=== PATIENT | female | born 1955 | race Caucasian/White ===

== ENCOUNTER → 2018-05-25 09:05 | Outpatient (CLI) | payer MEDICAID, SELFPAY ==
[2018-05-25 10:52] LABS: Hemoglobin A1c 11.3 % (4.2-6.3)
[2018-05-25 11:02] LABS: ALB/GLOB Ratio 0.8 RATIO (0.9-2.4); AST(SGOT) 33 U/L (15-37); Alanine Aminotransfer ALT/SGPT 33 U/L (13-56); Alkaline Phosphatase 120 U/L (45-117); Anion Gap 4 (5-15); BUN 21 mg/dL (7-18); BUN/Creat Ratio 23.2 RATIO (10-20); Calcium,Total 8.8 mg/dL (8.5-10.1); Chloride 104 mmol/L (98-107); Cholesterol 146 mg/dL (200); Creatinine, Serum 0.91 mg/dL (0.55-1.02); EST Glomerular Filtration Rate 67 mL/min (>60); Est Glom Filt Rate - Afr Amer 81 mL/min (>60); Globulin 3.9 g/dL (2.2-4.2); Glucose 119 mg/dL (74-106); High Density Lipoprotein 53 mg/dL; Potassium 4.3 mmol/L (3.5-5.1); Protein, Total 6.9 g/dL (6.4-8.2); Sodium Level 138 mmol/L (136-145); Triglycerides 78 mg/dL; Very Low Density Lipoprotein 16 mg/dL (5-40)
[2018-05-25 11:09] LABS: Vitamin D,25 Hydroxy 10.2 ng/mL (29.95-100.01)
== END ==
PROVIDERS: Family Provider Family Medicine; PCP Family Medicine; Referring Provider Nurse Practitioner; Visit Provider Nurse Practitioner
DX: E10.9 Type 1 diabetes mellitus without complications (principal)
CPT/HCPCS: 36415; 80053; 80061; 82043; 82306; 82570; 83036

== ENCOUNTER 2019-08-11 16:44 | Emergency (ER) | payer MEDICAID, SELFPAY ==
[2018-09-01 12:40] VITALS: BMI 29.9
[2019-08-11 16:45] VITALS: BP 204/95; PULSE 81; RESP 16; TEMP 36.8; O2SAT 99; BMI 30.3
--- NOTE | 2019-08-11 16:47 | ED.DCSUM_ITS ---
- ER Visit Summary Date of Service: 08/11/19 Chief Complaint: Elevated blood pressure History of Present Illness: The patient is a 63 F presenting per EMS for elevated blood pressure. Patient was having a routine insurance screening today. It was noted that her blood pressure was over 200 systolic. Her blood sugar was over 400. She did not take her medications today. She states she has been under stress and is taking care of her mother and her brother. This caused her to forget her medications today. She states that she did take her medications yesterday. She denies recent fever or chills. Denies chest pain or shortness of breath. Denies abdominal pain, nausea, vomiting. She complains of mild headache which is typical for her and no worse than usual. Denies other complaints. Physical Examination: Vitals are stable. Blood pressure 204/95. Patient is afebrile. Alert no acute distress. HEENT exam is unremarkable. Neck is supple. Lungs are clear and equal bilaterally. Heart is regular rate and rhythm. Abdomen is soft nontender nondistended. Extremities are unremarkable. Skin is warm and dry. No focal neurologic deficit. Remainder of exam is unremarkable. Emergency Department Course and Treatment: Patient given IV fluids. She was given her home dose of lisinopril. Chemistries show sodium 135, BUN 23, creatinine 1.19. Repeat blood pressure 159/80. She was given insulin subcutaneously. Repeat blood sugar 222. Patient is resting comfortably in the ED. She is advised to follow-up with her primary care physician. Advised to take her medication as directed. Advised return to ED if worsening complaints. Disposition: Discharge home Impression: Hypertension, hyperglycemia This note was generated with [employer]ister dictation software. It may contain incorrect words, spelling, and punctuation that were not noted in review of the chart prior to signing ED Disposition - Plan for ED Patient: Instructions: HYPERTENSION, Established Referrals: Melida Shaw MD [Primary Care Provider] - Sommer Wells DIRECTOR UTILIZATION MANAGEMENT-C [NON-STAFF] -
[2019-08-11] MEDS: 0.9% Normal Saline 1,000 ML 999 ML IV ×2 (16:57→18:38)
[2019-08-11] MEDS: Lisinopril 5 MG Tablet PO (17:00)
[2019-08-11 17:05] VITALS: BP 159/80; PULSE 78; RESP 21; O2SAT 99
[2019-08-11 17:06] LABS: Bedside Glucose 398 mg/dL (70-110)
[2019-08-11 17:37] LABS: Anion Gap 4 (5-15); BUN 23 mg/dL (7-18); BUN/Creat Ratio 19.3 RATIO (10-20); Calcium,Total 8.5 mg/dL (8.5-10.1); Chloride 102 mmol/L (98-107); Creatinine, Serum 1.19 mg/dL (0.55-1.02); EST Glomerular Filtration Rate 49 mL/min (>60); Est Glom Filt Rate - Afr Amer 59 mL/min (>60); Estimated Creatinine Clearance 46.48 ml/min; Glucose 426 mg/dL (74-106); Potassium 4.1 mmol/L (3.5-5.1); Sodium Level 135 mmol/L (136-145)
[2019-08-11] MEDS: Insulin Lispro 100 UNIT/ML INSULN.PEN 10 UNIT SC ×2 (17:52→18:38)
[2019-08-11 18:01] VITALS: BP 205/87; PULSE 76; RESP 13; O2SAT 99
[2019-08-11 18:35] LABS: Bedside Glucose 322 mg/dL (70-110)
[2019-08-11 19:31] LABS: Bedside Glucose 222 mg/dL (70-110)
--- NOTE | 2019-08-11 19:32 | DCINST.ED_ITS ---
ED Disposition - Plan for ED Patient: Instructions: HYPERTENSION, Established Referrals: Melida Shaw MD [Primary Care Provider] - Sommer Wells WIRELESS OPERATOR-C [NON-STAFF] -
[2019-08-11 20:07] VITALS: BP 167/79; PULSE 85; RESP 18; O2SAT 96
== END 2019-08-11 20:10 | disposition home or self-care (01) ==
LOC: ED 17:06
PROVIDERS: Emergency Provider Emergency Medicine; Family Provider Family Medicine; PCP Family Medicine
DX: E11.65 Type 2 diabetes mellitus with hyperglycemia (principal); I10 Essential (primary) hypertension; Z79.4 Long term (current) use of insulin; Z79.899 Other long term (current) drug therapy
CPT/HCPCS: 80048; 82962; 96360; 96361; 99285; J7030; A4216

== ENCOUNTER 2019-12-20 15:11 | Observation (INO) | payer MEDICAID, SELFPAY ==
[2019-12-20] VITALS (11 sets, daily range): BP systolic 125–196; BP diastolic 62–87; PULSE 73–79; RESP 14–17; TEMP 36.1–37.1; O2SAT 99–100; BMI 30.3; BMI 30.2; BMI 29.5
--- NOTE | 2019-12-20 15:55 | CT_ITS ---
STUDY: CT BRAIN WITHOUT CONTRAST REASON FOR EXAM: Female, 64 years old. Dizziness, mental status change RADIATION DOSAGE (If Supplied By Facility): CTDIvol = ( 44.99 ) mGy, DLP = ( 796.11 ) mGycm TECHNIQUE: Transaxial CT imaging of the brain was performed without administration of intravenous contrast material. Individualized dose optimization techniques were used for this CT. COMPARISON: 05/20/2016 FINDINGS: Normal soft tissue structures. Normal calvarium. Normal size ventricles and extra-axial spaces for the patient''s age. Normal white matter tracts of the cerebral hemispheres. Normal basal ganglia and thalami. Normal brainstem. Normal cerebellum. There is no intracranial hemorrhage. There are no findings of an acute ischemic infarction. Normal visualized paranasal sinuses. CT/Brain/Head without Contrast IMPRESSION: Chronic involutional changes of the brain. No acute hemorrhage or significant interval change Electronically Signed: Javid Hill MD at 17:02 EDT , Service support ,
--- NOTE | 2019-12-20 15:55 | EKG12_ITS ---
Test Reason : Blood Pressure : / mmHG Vent. Rate : 075 BPM Atrial Rate : 075 BPM P-R Int : 162 ms QRS Dur : 110 ms QT Int : 412 ms P-R-T Axes : 034 -32 059 degrees QTc Int : 460 ms Normal sinus rhythm Left axis deviation Incomplete right bundle branch block Abnormal ECG Confirmed by JUAREZ CROW ([id number]), editorial cartoonist BETH LIMA ([id number]) on 12/27/2019 2:52:49 PM Referred By: HOLLEY/ANGELA Confirmed By:JUAREZ CROW
--- NOTE | 2019-12-20 16:00 | ED.VIS.GEN ---
History of Present Illness Chief Complaint: Dizziness Informant: Patient Onset: Today Context: Sudden Onset Timing: Continuous Current Severity: Mild Maximum Severity: Moderate Narrative: The patient is a 64-year-old female with medical history significant for hypertension, hyperlipidemia, and diabetes that presents to the emergency department with TIA type symptoms. Patient states she was in her normal state of health. States she was driving. She had sudden onset lightheadedness. She states that she noticed she could not focus. She had a difficult time getting her words out. She states that she had her cell phone, but cannot figure out how to work it. Her symptoms lasted about half an hour and totally resolved. She states that she did have a mild headache at the time. She is been working with her physician to get her blood pressure under better control. She states normally, it runs in the 170s. She denies any chest pain or dyspnea. She denies any falls or trauma. She states that she does have blurry vision intermittently, but attributes this to her diabetic retinopathy. Prior similar symptoms: No Recent Illness/Hospitalization: No Past Medical History - Allergies and Home Meds Allergies/Adverse Reactions: Allergies Penicillins Allergy (Verified 12/20/19 15:23) Hives hydromorphone [From Dilaudid] Adverse Reaction (Verified 12/20/19 15:23) Vomiting Primary Care Physician: Melida Shaw MD [Primary Care Provider] - Prior records reviewed: Yes Past Medical History: - - Hypertension, hyperlipidemia, diabetes Surgical History: noncontributory, ACL repair Smoking Status: Former smoker - Family History Maternal Family History: Family History (Last Reviewed 09/01/18 @ 12:37 by Catherine Centeno) Mother Diabetes Father Heart disease Hypertension Family History: Reports: No pertinent history Review of Systems General: Denies: Chills, Fever, Sweats Eyes: Denies: Visual changes - bilaterally, Diplopia ENT: Denies: Rhinorrhea, Sore throat Cardiovascular: Denies: Chest pain, Palpitations Respiratory: Denies: Dyspnea, Cough, Dyspnea on exertion Gastrointestinal: Denies: Abdominal pain, Nausea, Vomiting, Diarrhea, Melena, Hematochezia Genitourinary: Denies: Dysuria, Hematuria, Frequency Musculoskeletal: Denies: Back pain, Extremity Pain Skin: Denies: Rash, Wounds Neurological: Denies: Headache, Weakness, Numbness Physical Exam Vital Signs/Narrative: Vital Signs Temp Pulse Resp BP Pulse Ox 12/20/19 15:12 98.7 F 76 17 189/81 H 100 Inital Vital Signs reviewed: Yes General: Well nourished, Well developed, No Acute Distress Head: Normocephalic, Atraumatic Eyes: Perrl, EOMI ENT: Moist mucous membranes, No rhinorrhea Neck: Supple, Nontender Cardiovascular: Regular rate, Regular rhythm, No murmurs Respiratory: No distress, CTA bilaterally, Chest nontender Abdomen: Soft, Nontender, Nondistended, Normal bowel sounds Back: Nontender, Normal Inspection Extremities: Nontender, No edema Skin: Normal color, No rash Neurological: Alert, Oriented x3, Cranial nerves II-XII grossly intact, Normal Strength, Normal Sensation Psychological: Normal affect, Normal Mood Diagnostic/Tx/Re-eval Abnormal Lab Results 12/20/19 12/20/19 12/20/19 16:26 16:26 16:26 WBC 9.8 RBC 4.00 L Hgb 11.0 L Hct 33.6 L MCV 84.0 MCH 27.5 MCHC 32.7 RDW Std Deviation 39.5 RDW Coeff of Nevin 12.9 Plt Count 254 MPV 9.7 Immature Gran % (Auto) 0.100 Neut % (Auto) 49.1 Lymph % (Auto) 36.2 [place] % (Auto) 7.1 Eos % (Auto) 6.9 H Baso % (Auto) 0.6 Absolute Neuts (auto) 4.8 Absolute Lymphs (auto) 3.53 Nucleated RBC % 0 PT 13.0 INR 1.0 APTT 28.2 Sodium 138 Potassium 4.4 Chloride 105 Carbon Dioxide 28.0 Anion Gap 5 BUN 36 H Creatinine 1.39 H Estim Creat Clear Calc 39.28 Est GFR (MDRD) Af Amer 49 L Est GFR (MDRD) Non-Af 41 L BUN/Creatinine Ratio 25.9 H Glucose 164 H Calcium 9.2 Troponin I < 0.015 Clinical Impression(s) from Imaging Studies Brain CT 12/20/19 15:55 IMPRESSION: Chronic involutional changes of the brain. No acute hemorrhage or significant interval change Electronically Signed: Javid Hill MD at 17:02 EDT , Service support , Chest X-Ray 12/20/19 16:47 IMPRESSION: Normal x-ray examination of the chest. Electronically Signed: Javid Hill MD at 16:57 EDT , Service support , - Medical Decision Making The patient presents with lightheadedness, difficulty with speech, and difficulty controlling her phone. It lasted about 30 minutes and then resolved. She has an NIH of 0 on arrival. Stroke team was not activated as the patient symptoms have totally resolved. Noncontrast head CT was obtained and shows chronic change without acute abnormality. Screening labs are unremarkable. With the patient's age, significant history of poorly controlled diabetes and accelerated hypertension, I do feel the safest plan would be the observation for TIA work-up. The patient was discussed with the hospitalist. Impression 1. TIA 2. History of insulin-dependent diabetes 3. History of hypertension ED Disposition - Plan for ED Patient: Referrals: Melida Shaw MD [Primary Care Provider] -
[2019-12-20 16:40] LABS: Absolute Lymphocyte Count 3.53 X10^3/uL (0.83-4.51); Absolute Neutrophil Count 4.8 X10^3/uL (2.0-7.7); Basophil# 0.06 X10^3/uL; Basophil% 0.6 % (0-1); Eosinophil# 0.67 X10^3/uL; Eosinophils% 6.9 % (0-5); Hematocrit 33.6 % (37-47); Lymphocyte # 3.53 X10^3/ul (4.0); Lymphocyte % 36.2 % (19-41); Mean Corp Hgb Conc 32.7 g/dL (32-36); Mean Corpuscular Hgb 27.5 pg (27.0-32.0); Mean Platelet Vol. 9.7 fl (6.2-12.0); Monocyte# 0.69 X10^3/uL; Monocyte% 7.1 % (0-10); NRBC Flagged by Analyzer 0 % (0-5); Neutrophil % 49.1 % (47-70); Platelet Count 254 K/mm3 (150-450); RBC Distribution Width CV 12.9 % (11.6-14.6); RBC Distribution Width SD 39.5 fl (35.1-43.9); White Blood Count 9.8 K/mm3 (4.4-11.0)
--- NOTE | 2019-12-20 16:47 | RAD_ITS ---
STUDY: X-RAY CHEST REASON FOR EXAM: Female, 64 years old. Dizziness and headache, hypertension TECHNIQUE: Single AP portable view of the chest. COMPARISON: 09/04/2016 FINDINGS: EKG leads overlie the chest The lungs are clear and expanded. There is no demonstrated pleural abnormality. Normal size heart. Normal mediastinum and cecilio. Normal visualized pulmonary arteries. Normal visualized aortic arch and descending thoracic aorta. Normal visualized thoracic spine. Normal visualized ribs, clavicles, and shoulders. There is no demonstrated abnormality of the visualized soft tissue structures of the upper abdomen. RAD/Chest 1 View IMPRESSION: Normal x-ray examination of the chest. Electronically Signed: Javid Hill MD at 16:57 EDT , Service support ,
[2019-12-20 16:57] LABS: Anion Gap 5 (5-15); BUN 36 mg/dL (7-18); BUN/Creat Ratio 25.9 RATIO (10-20); Calcium,Total 9.2 mg/dL (8.5-10.1); Chloride 105 mmol/L (98-107); Creatinine, Serum 1.39 mg/dL (0.55-1.02); EST Glomerular Filtration Rate 41 mL/min (>60); Est Glom Filt Rate - Afr Amer 49 mL/min (>60); Estimated Creatinine Clearance 39.28 ml/min; Glucose 164 mg/dL (74-106); Potassium 4.4 mmol/L (3.5-5.1); Sodium Level 138 mmol/L (136-145)
[2019-12-20 17:07] LABS: Partial Thromboplast Time 28.2 Seconds (24.1-36.2)
[2019-12-20] MEDS: amLODIPine 10 MG Tablet PO (17:54)
--- NOTE | 2019-12-20 17:56 | ED.RN ---
PT'S SISTER UPDATED ON PT STATUS AND ADMISSION ROOM
--- NOTE | 2019-12-20 18:25 | MRI_ITS ---
STUDY: MRI BRAIN WITHOUT CONTRAST REASON FOR EXAM: Female, 64 years old. tia, dizzness, grant, htn TECHNIQUE: Standardized multiplanar fat and water weighted pulse sequences were obtained. Dizziness and headache COMPARISON: CT of the brain December 20, 2019 FINDINGS: Mild atrophy and periventricular white matter ischemic changes without mass effect or restricted diffusion.. Tiny old lacunar infarct in right basal ganglia. Normal thalami. There is no extra-axial fluid accumulation. Normal flow voids within the major intracranial circulation suggesting patency by spin echo criteria. Normal sella turcica, pituitary gland, infundibular stalk, optic chiasm and hypothalamus. Normal tectal plate and pineal gland. Normal midbrain, bhaskar and medulla. Normal cerebellum. Normal basal cisterns. Normal bilateral temporal bones. Normal bilateral internal auditory canals. Fluid signal noted within the left mastoid air cells consistent with inflammatory disease Postop changes involving the orbits.. Normal visualized paranasal sinuses. Normal calvarium and skull base. Normal visualized soft tissue structures. Normal visualized upper cervical spine. MRI/Brain without Contrast IMPRESSION: Mild atrophy and periventricular white matter ischemic change without evidence for acute infarct. Tiny old right lacunar infarct Electronically Signed: Lyndon Munguia MD at 20:04 EDT , Service support ,
--- NOTE | 2019-12-20 18:25 | ECHOD_ITS ---
Reason For Study: TIA/CVA Procedure This was a 2D Doppler, Color Flow transthoracic echocardiogram. The exam was of adequate technical quality. Exam performed portable in patient room. Left Ventricle Normal LV size. Left ventricular systolic function is normal. The estimated ejection fraction is 65 %. Diastolic function is indeterminate. No regional wall motion abnormalities noted. Right Ventricle Normal RV size. Normal systolic function. Atria Normal left atrium. Normal right atrium. No doppler evidence for ASD. Mitral Valve There is no mitral annular calcification. Normal mitral valve. Trivial mitral valve insufficiency. Tricuspid Valve Normal tricuspid valve. Trivial tricuspid valve insufficiency. Aortic Valve Trisinus/trileaflet aortic valve. Mild focal aortic valve calcification. Pulmonic Valve Normal pulmonic valve. Trivial pulmonic valve insufficiency. Great Vessels Normal sized aortic root. Pericardium/Pleural Trivial pericardial effusion. There are no echocardiographic indications of cardiac tamponade. Medication Negative bubble study on previous VINNIE 05/10. MMode/2D Measurements & Calculations LVIDd: 4.0 cm IVSd: 1.1 cm Ao root diam: 2.8 cm LVIDs: 2.5 cm LVPWd: 0.97 cm RVDd: 3.1 cm FS: 38.2 % LAV(MOD-bp): 52.1 ml LVAd ap4: 24.7 cm2 SV(MOD-sp4): 41.9 ml LAV(MOD-bp) Indexed: 26.8 ml/m2 EDV(MOD-sp4): 65.7 ml LAV(MOD-sp2): 60.3 ml EDV(sp4-el): 67.1 ml LAV(MOD-sp4): 44.2 ml LVAs ap4: 13.6 cm2 ESV(MOD-sp4): 23.8 ml ESV(sp4-el): 24.1 ml EF(MOD-sp4): 63.7 % EF(sp4-el): 64.1 % SV(sp4-el): 43.0 ml LA A4 area: 16.5 cm2 LA dimension(2D): 3.1 cm RA A4 area: 13.8 cm2 Doppler Measurements & Calculations MV E max sawyer: 84.2 cm/sec Lat Peak E' Sawyer: 7.1 cm/sec Med Peak E' Sawyer: 4.5 cm/sec MV A max sawyer: 122.0 cm/sec E/E' lat: 11.8 E/E' med: 18.6 MV E/A: 0.69 Ao V2 max: 144.4 cm/sec LV V1 max: 105.2 cm/sec PA V2 max: 87.6 cm/sec Ao max P.3 mmHg LV V1 max P.4 mmHg Interpretation Summary Left ventricular systolic function is normal. The estimated ejection fraction is 65 %. Trivial mitral valve insufficiency. Trivial tricuspid valve insufficiency. Mild focal aortic valve calcification. Trivial pulmonic valve insufficiency. Trivial pericardial effusion. There are no echocardiographic indications of cardiac tamponade. Diastolic function is indeterminate. Ordering Physician: Adelso Perry Referring Physician: Melida Shaw Performed By: Clara Spicer RDCS
--- NOTE | 2019-12-20 19:00 | HP.PCM_ITS ---
History of Present Illness Date of Admission: 12/20/19 Chief Complaint: TIA The patient is a 64 year old F with a PMH as below who presents with numbness concerning for a TIA that started around noon today. She states that she was driving and called her brother and was not making any sense he said that he cou ld not understand her and to call back when he she gets home. She says that she started having headaches as well as blurry vision and could not figure out how to you operate her phone. She called back when she was able to make it home and at that point the decision was made to come to the ER. In the ER her symptoms were basically resolved, she states that she has some residual blurry vision but that is much improved than what it had been. She says that she has been struggling with her blood pressure for about 6 months now. She she was on lisinopril that was started at 5 mg and was slowly increased to 40 mg daily and she had chlorthalidone added on . Her blood pressure is anywhere between 180 and 200 systolic while here. In the ER she was given a dose of labetalol and a dose of Norvasc p.o. She says that she was supposed to have a renal ultrasound done as an outpatient as well as a 24-hour urine collection. She states that she is normally blurry vision because of her diabetic retinopathy and per documentation from the ED physician her NIH is 0 at the time of admission. Her creatinine has increased to 1.39 from a baseline of around 1. A1c back in 2018 was 11.3, blood sugar today is 164. 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 dx as type 1 - 2 years ago Last exacerbation : DKA : 2016 Hypoglycemic episode : never ER visit : 2016 Vision problem H54.7 Allergies Penicillins Allergy (Verified 12/20/19 15:23) Hives hydromorphone [From Dilaudid] Adverse Reaction (Verified 12/20/19 15:23) Vomiting Home Medications: Ambulatory Orders Medication Instructions Recorded insulin aspart U-100 100 unit/mL See Rx Instructions SC TID ml 05/13/18 (3 mL) subcutaneous pen Insulin Glargine,Hum.rec.anlog 20 unit SUBCUT QHS 08/11/19 [Basaglar KwikPen U-100 Insulin] Atorvastatin Calcium 20 mg PO DAILY 12/20/19 Chlorthalidone 25 mg PO DAILY 12/20/19 Lisinopril 40 mg PO DAILY 12/20/19 Loratadine 10 mg PO DAILY 12/20/19 Surgical History: Surgical History (Last Updated 09/01/18 @ 12:57 by Catherine Centeno) Heel spur M77.30 History of cataract extraction with lens replacement Hx of eye surgery Z98.890 Hx of knee surgery Z98.890 Hx of tonsillectomy Z90.89 S/P carpal tunnel release Z98.890 S/P cholecystectomy Z90.49 S/p bilateral myringotomy with tube placement Z96.22 Smoking Status: Former smoker Tobacco Use: Cigarettes Alcohol: None Drugs: None - *Family History Maternal Family History: Family History (Last Reviewed 09/01/18 @ 12:37 by Catherine Centeno) Mother Diabetes Father Heart disease Hypertension History Items: No pertinent history Review of Systems Constitutional: Denies: Chills, Fever, Weight Change Eyes: Reports: Blurred vision HEENT: Reports: Head Aches. Denies: Sinus Congestion, Sinus Drainage Cardiovascular: Denies: Chest Pain, Palpitations Respiratory: Denies: Cough, Shortness of breath at rest, Sputum production Gastrointestinal: Denies: Abdominal Pain, Nausea, Vomiting Genitourinary: Denies: Dysuria Musculoskeletal: Denies: Joint Pain, Joint Tenderness Skin: Denies: Rash, Wounds Neurological: Reports: Blurred vision, Change in Speech, Slurred speech. Denies: Focal weakness, Numbness, Tingling Psychiatric: Denies: Anxiety, Depression, Homicidal Ideations, Suicidal Ideations Hematologic/ Lymphatic: Denies: Easy Bruising, Easy Bleeding VTE Information - Inpt Only VTE Present on Admission: No - Physical Exam Vitals/I&O's: Vital Signs Temp Pulse Resp BP Pulse Ox 98.1 F 77 16 159/86 H 100 12/20/19 18:30 12/20/19 18:30 12/20/19 18:30 12/20/19 18:30 12/20/19 18:30 Oxygen Delivery Method Room Air Weight: 182 lb 15.739 oz Body Mass Index (BMI) 29.5 Finger Stick Blood Glucose 226 General: Alert, Oriented x3, Cooperative, No apparent distress HEENT: Atraumatic, PERRLA, EOMI, Normocephalic Oral: Moist Mucosa Neck: Supple, No JVD Lungs: Clear to auscultation, Normal air movement, No rhonchi, No wheeze, No rales, Diminished Cardiovascular: Regular rate, Regular Rhythm, Normal S1, Normal S2, No murmurs Abdomen: Soft, Non Tender, Non-Distended, No Hepato-splenomegaly Extremities: No edema, Capillary Refill Less than 3 Seconds Skin: No rashes, No breakdown Neurological: Cranial nerves II-XII grossly intact, Neuro grossly intact, Motor Exam 5/5 strength throughout, Sensory exam intact to light touch and pain Psych/Mental Status: Normal Affect, Appropriate Laboratory Results 12/20/19 16:26: WBC 9.8, RBC 4.00 L, Hgb 11.0 L, Hct 33.6 L, MCV 84.0, MCH 27.5, MCHC 32.7, RDW Std Deviation 39.5, RDW Coeff of Nevin 12.9, Plt Count 254, MPV 9.7, Immature Gran % (Auto) 0.100, Neut % (Auto) 49.1, Lymph % (Auto) 36.2, [place] % (Auto) 7.1, Eos % (Auto) 6.9 H, Baso % (Auto) 0.6, Absolute Neuts (auto) 4.8, Absolute Lymphs (auto) 3.53, Nucleated RBC % 0 12/20/19 16:26: PT 13.0, INR 1.0, APTT 28.2 12/20/19 16:26: Sodium 138, Potassium 4.4, Chloride 105, Carbon Dioxide 28.0, Anion Gap 5, BUN 36 H, Creatinine 1.39 H, Estim Creat Clear Calc 39.28, Est GFR (MDRD) Af Amer 49 L, Est GFR (MDRD) Non-Af 41 L, BUN/Creatinine Ratio 25.9 H, Glucose 164 H, Calcium 9.2, Troponin I < 0.015 Current Medications Amlodipine Besylate (Norvasc) 10 mg PO DAILY MOHSEN Aspirin (Aspirin, Baby) 81 mg PO DAILY@0800 MOHSEN Dextrose (D50w Syringe) 0 gm IV X1 PRN; Protocol PRN Reason: Hypoglycemia Glucagon () 1 mg IM .X1 PRN PRN Reason: Hypoglycemia Heparin Sodium (Porcine) (Heparin Na) 5,000 unit SC Q8 MOHSEN Hydralazine HCl (Apresoline Iv) 5 mg IV Q30M PRN PRN Reason: to maintain BP goals Sodium Chloride () 250 mls @ 15 mls/hr IV .[id number] PRN PRN Reason: Saline Flush Sodium Chloride () 250 mls @ 15 mls/hr IV .[id number] PRN PRN Reason: Additional IVPB Infusion Labetalol HCl (Trandate) 10 - 20 mg IV Q10M PRN PRN PRN Reason: to maintain BP goals Melatonin (Melatonin) 3 mg PO QHS PRN PRN PRN Reason: INSOMNIA Ondansetron HCl (Zofran) 4 mg IV Q8H PRN PRN PRN Reason: NAUSEA/VOMITING Sodium Chloride () 10 - 40 ml IV UD PRN PRN Reason: SALINE FLUSH Assessment/Plan All Active Problems (Last Reviewed 09/01/18 @ 12:37 by Catherine Centeno) DKA (diabetic ketoacidosis) (Acute) Septic shock (Acute) Metabolic acidosis (Acute) Metabolic encephalopathy (Acute) 1. TIA/hypertensive urgency/hyperlipidemia -With the TIA-like symptoms and the headaches of the jaw revision and the elevated blood pressure there is a concern for hypertensive urgency -We will add Norvasc and monitor, will be slow with lowering her blood pressure -We will obtain an MRI in the morning and start her on aspirin -Continue with her Lipitor as well as her home chlorthalidone and lisinopril -We will obtain an echo, EKG was unremarkable -UA is pending, and will follow up with a renal ultrasound in the morning -NIH is per PCU protocol 2. IDDM 2 with peripheral neuropathy -He has stocking-glove numbness which is baseline as well as diabetic retinopathy -We will continue with her home insulin, and monitor we will check a [facility] Accu- Cheks and if necessary add further insulin -We will also order an A1c DVT: Heparin OBSV E&M: 73113 Initial observation care L3
--- NOTE | 2019-12-20 19:05 | US_ITS ---
STUDY: RENAL ULTRASOUND - COMPLETE REASON FOR EXAM: Female, 64 years old. HTN TECHNIQUE: Ultrasound evaluation of the kidneys was performed with real-time and static moya-scale imaging. COMPARISON: None. FINDINGS: RIGHT KIDNEY: Normal location of the right kidney, which is normal in size. The right kidney measures 10 x 5.3 x 4.9 cm. There is a normal cortex of the right kidney. The renal cortex measures 1.6 cm. There are 2 cysts measuring 1 x 1.3 x 2.5 cm and 1.2 x 0.9 x 0.7 cm There are no right renal calculi. There is no right hydronephrosis. DISTAL RIGHT URETER: There is non-visualization of the distal right ureter. There is no demonstrated right ureterovesical junction calculus. There is a visualized right ureteral jet. LEFT KIDNEY: Normal location of the left kidney, which is normal in size. The left kidney measures 11.3 x 5 x 4.9 cm. There is a normal cortex of the left kidney. The renal cortex measures 1.9 cm. There is a cyst measuring 1 x 0.9 x 0.9 cm There are no left renal calculi. There is no left hydronephrosis. DISTAL LEFT URETER: There is non-visualization of the distal left ureter. There is no demonstrated left ureterovesical junction calculus. There is a visualized left ureteral jet. Diffusely increased cortical echoes bilaterally consistent with nonspecific renal parenchymal disease BLADDER: The distended urinary bladder has a volume of 1.26 ml. 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 Small bilateral cysts. Electronically Signed: Lyndon Munguia MD at 20:44 EDT , Service support ,
[2019-12-20 19:37] LABS: Hemoglobin A1c 10.3 % (4.2-6.3)
[2019-12-20 20:45] LABS: Bedside Glucose 156 mg/dL (70-110)
[2019-12-20] MEDS: Heparin Injection (Vial) 5,000 UNIT/ML VIAL 5000 UNIT SC (21:54)
[2019-12-21] VITALS (8 sets, daily range): BP systolic 123–154; BP diastolic 58–70; PULSE 70–82; RESP 16–17; TEMP 36.6–36.7; O2SAT 95–98; BMI 29.5
[2019-12-21 04:19] LABS: Mucous, Urine 0 SEEN /hpf (<or=2+)
[2019-12-21 04:20] LABS: Color, Urine Yellow (Yellow); Glucose, Dipstick 50 mg/dl (Normal); Ketone-Dipstick Negative (Negative); Leukocyte Esterase-Dipstick 500 /ul (Negative); Nitrite-Dipstick Negative (Negative); Occult Blood-Urine 50 /ul (Negative); Protein-Dipstick 100 mg/dl (Negative); Specific Gravity, Urine 1.015 (1.002-1.030); Urine Bilirubin Dipstick Negative (Negative); Urine Clarity Cloudy (Clear); Urine Urobilinogen Normal (Normal)
[2019-12-21 04:26] LABS: Bacteria 3+ /hpf (None Seen); Red Blood Cells-Urine 5-10 SEEN /hpf (0-5); Squamous Epithelial Cells - UA 5-10 SEEN /hpf (5-10); White Blood Cells 10-25 SEEN /hpf (0-5)
[2019-12-21] MEDS: Heparin Injection (Vial) 5,000 UNIT/ML VIAL 5000 UNIT SC ×2 (05:50→13:42)
[2019-12-21 07:51] LABS: Absolute Lymphocyte Count 2.86 X10^3/uL (0.83-4.51); Absolute Neutrophil Count 3.3 X10^3/uL (2.0-7.7); Basophil# 0.06 X10^3/uL; Basophil% 0.8 % (0-1); Eosinophil# 0.56 X10^3/uL; Eosinophils% 7.6 % (0-5); Hematocrit 30.3 % (37-47); Lymphocyte # 2.86 X10^3/ul (4.0); Lymphocyte % 38.9 % (19-41); Mean Corpuscular Hgb 27.5 pg (27.0-32.0); Mean Corpuscular Volume 83.2 fL (81-99); Mean Platelet Vol. 10.1 fl (6.2-12.0); Monocyte# 0.58 X10^3/uL; Monocyte% 7.9 % (0-10); NRBC Flagged by Analyzer 0 % (0-5); Neutrophil # 3.28 X10^3/uL (2.7-7.7); Neutrophil % 44.7 % (47-70); Platelet Count 224 K/mm3 (150-450); RBC Distribution Width SD 39.4 fl (35.1-43.9); Red Blood Count 3.64 M/mm3 (4.2-5.4); White Blood Count 7.4 K/mm3 (4.4-11.0)
[2019-12-21] MEDS: Aspirin 81 MG TAB.CHEW PO (07:56)
[2019-12-21] MEDS: Insulin Lispro 100 UNIT/ML INSULN.PEN 10 UNIT SC ×2 (08:02→11:26)
[2019-12-21] MEDS: Insulin Lispro 100 UNIT/ML INSULN.PEN SC ×2 (08:03→11:26)
[2019-12-21 08:16] LABS: Anion Gap 7 (5-15); BUN 34 mg/dL (7-18); Calcium,Total 8.7 mg/dL (8.5-10.1); Chloride 105 mmol/L (98-107); Cholesterol 97 mg/dL (200); Creatinine, Serum 1.31 mg/dL (0.55-1.02); EST Glomerular Filtration Rate 44 mL/min (>60); Est Glom Filt Rate - Afr Amer 53 mL/min (>60); Estimated Creatinine Clearance 41.68 ml/min; Glucose 200 mg/dL (74-106); High Density Lipoprotein 36 mg/dL; Sodium Level 138 mmol/L (136-145); Triglycerides 106 mg/dL; Very Low Density Lipoprotein 21 mg/dL (5-40)
[2019-12-21] MEDS: Acetaminophen 325 MG Tablet 650 MG PO (09:02)
[2019-12-21] MEDS: Lisinopril 40 MG Tablet PO (09:04)
[2019-12-21] MEDS: Loratadine 10 MG Tablet PO (09:04)
[2019-12-21] MEDS: amLODIPine 10 MG Tablet PO (09:04)
[2019-12-21] MEDS: Chlorthalidone 50 MG Tablet 25 MG PO (09:10)
[2019-12-21 09:15] LABS: Bedside Glucose 196 mg/dL (70-110)
[2019-12-21] MEDS: Ciprofloxacin 500 MG Tablet PO (10:32)
[2019-12-21 10:35] LABS: Protein:Creat Ratio 1011 mg/g CRE (0-200)
[2019-12-21 11:36] LABS: Bedside Glucose 373 mg/dL (70-110)
--- NOTE | 2019-12-21 14:45 | DCINST_ITS ---
You will use the following diet at home:: Calorie/Carbohydrate Controlled (specify 1200, 1400, etc) Your food should be the consistency of: Regular Your liquids should be the consistency of: Regular/Thin Discharge Activity: Return to Normal Activity Call your doctor if you observe: Fever of 101 or Higher, Shortness of breath, Dizziness, Fainting spells, Swelling in the ankles, Chest pain, Increased palpitations (irregular heartbeat) Additional Instructions: Have a BMP as an outpatient by your PCP to evaluate your kidney function. Allergies/Adverse Reactions: Allergies Penicillins Allergy (Verified 12/20/19 15:23) Hives cephalexin [From Keflex] Adverse Reaction (Verified 12/21/19 09:06) Itching hydromorphone [From Dilaudid] Adverse Reaction (Verified 12/20/19 15:23) Vomiting Medications to take at Discharge insulin aspart U-100 100 unit/mL (3 mL) subcutaneous pen See Rx Instructions SC TID ml 05/13/18 Insulin Glargine,Hum.rec.anlog [Basaglar Kwikpen U-100] 20 unit SUBCUT QHS 08/11/19 Atorvastatin Calcium 20 mg PO DAILY 12/20/19 Chlorthalidone 25 mg PO DAILY 12/20/19 Lisinopril 40 mg PO DAILY 12/20/19 Loratadine 10 mg PO DAILY 12/20/19 Amlodipine [Norvasc] 10 mg PO DAILY #30 tab 12/21/19 Aspirin [Aspirin, Baby] 81 mg PO DAILY@0800 #30 tab.chew 12/21/19 Ciprofloxacin [Cipro] 500 mg PO BID #10 tab 12/21/19 The following prescriptions were given: Aspirin [Aspirin, Baby] 81 mg PO DAILY@0800 #30 tab.chew Transmission Status: Pending to [facility] Ciprofloxacin [Cipro] 500 mg PO BID #10 tab Transmission Status: Pending to [facility] Amlodipine [Norvasc] 10 mg PO DAILY #30 tab Transmission Status: Pending to [facility] Primary Care Physician: Melida Shaw MD [Primary Care Provider] - Please follow up with your Primary Care Physician in: 1-2 weeks Test Results: Test results from this visit will be discussed in further detail at your follow- up appointment, if applicable. Please Follow Up With: Susie Waddell DO When: 2-4 weeks
--- NOTE | 2019-12-21 14:47 | PCM.DC.SUM ---
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 No acute hemorrhage or significant interval change CXR: IMPRESSION: Normal x-ray examination of the chest. MRI Brain IMPRESSION: Mild atrophy and periventricular white matter ischemic change without evidence for acute infarct. Tiny old right lacunar infarct Echo: Interpretation Summary Left ventricular systolic function is normal. The estimated ejection fraction is 65 %. Trivial mitral valve insufficiency. Trivial tricuspid valve insufficiency. Mild focal aortic valve calcification. Trivial pulmonic valve insufficiency. Trivial pericardial effusion. There are no echocardiographic indications of cardiac tamponade. Diastolic function is indeterminate. Renal US: FINDINGS: RIGHT KIDNEY: Normal location of the right kidney, which is normal in size. The right kidney measures 10 x 5.3 x 4.9 cm. There is a normal cortex of the right kidney. The renal cortex measures 1.6 cm. There are 2 cysts measuring 1 x 1.3 x 2.5 cm and 1.2 x 0.9 x 0.7 cm There are no right renal calculi. There is no right hydronephrosis. DISTAL RIGHT URETER: There is non-visualization of the distal right ureter. There is no demonstrated right ureterovesical junction calculus. There is a visualized right ureteral jet. LEFT KIDNEY: Normal location of the left kidney, which is normal in size. The left kidney measures 11.3 x 5 x 4.9 cm. There is a normal cortex of the left kidney. The renal cortex measures 1.9 cm. There is a cyst measuring 1 x 0.9 x 0.9 cm There are no left renal calculi. There is no left hydronephrosis. DISTAL LEFT URETER: There is non-visualization of the distal left ureter. There is no demonstrated left ureterovesical junction calculus. There is a visualized left ureteral jet. Diffusely increased cortical echoes bilaterally consistent with nonspecific renal parenchymal disease BLADDER: The distended urinary bladder has a volume of 1.26 ml. 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 Small bilateral cysts. Consults: None Operations: None Procedures: 2-D Echocardiogram Summary of Care Provided: Per HPI: The patient is a 64 year old F with a PMH as below who presents with numbness concerning for a TIA that started around noon today. She states that she was driving and called her brother and was not making any sense he said that he could not understand her and to call back when he she gets home. She says that she started having headaches as well as blurry vision and could not figure out how to you operate her phone. She called back when she was able to make it home and at that point the decision was made to come to the ER. In the ER her symptoms were basically resolved, she states that she has some residual blurry vision but that is much improved than what it had been. She says that she has been struggling with her blood pressure for about 6 months now. She she was on lisinopril that was started at 5 mg and was slowly increased to 40 mg daily and she had chlorthalidone added on . Her blood pressure is anywhere between 180 and 200 systolic while here. In the ER she was given a dose of labetalol and a dose of Norvasc p.o. She says that she was supposed to have a renal ultrasound done as an outpatient as well as a 24-hour urine collection. She states that she is normally blurry vision because of her diabetic retinopathy and per documentation from the ED physician her NIH is 0 at the time of admission. Her creatinine has increased to 1.39 from a baseline of around 1. A1c back in 2018 was 11.3, blood sugar today is 164. Hospital Course: 1. TIA/hypertensive urgency/[id number]-uddp-old female was driving when she knows that she could not figure out how to work her phone, she tried to call her brother and was not making any sense and he could not understand her. She drove home and when she tried to call her brother again he still could not understand her so they called EMS. By the time she got to the hospital she was feeling better and did have difficulty speaking however she stated that while she was driving she had gotten some blurry vision worse than her baseline retinopathy, as well as a headache. She had elevated blood pressures and has been on lisinopril 40 mg daily as well as recently started on chlorthalidone 25 mg p.o. daily. She was started on Norvasc 10 mg p.o. daily and her blood pressures have been staying in the 120s to 130s and she has been doing well. She states that her headache is pretty much gone and that her blurry vision is back to normal. She also states that she no longer has any of the previous speech issues that she was having before she presented to the hospital. She did have a renal ultrasound which shows some renal parenchymal disease likely consistent with hypertensive and/or diabetic damage. When he looked back over her previous creatinines there has been a rise from her baseline, however she had only had one creatinine obtained in 2019 therefore it is difficult to see where her baseline currently is however in 2016 her baseline was around 1.62.7. I did obtain a urine protein/creatinine ratio which came back elevated at a little over 1000 mg/g. I have a set her up to follow-up with nephrology as an outpatient. And she is to continue all 3 of her blood pressure medications, and she was started on aspirin secondary to possible TIA which she is also to continue. I discussed the discharge plan and she expressed understanding of the risks and benefits of going home and the need to follow-up with her primary care doctor as well as nephrology. 2. UTI-her UA came back positive with 500 leukocyte esterase as well as white blood cells and 3+ urine bacteria. She is allergic to penicillins and she states Keflex therefore will place her on Cipro for 5 days and await her culture results to adjust antibiotics if necessary. 3. IDDM 2-initially when she was diagnosed with diabetes her A1c was 14 and she is currently down to 10.3, in reviewing her chart there does seem to be at least initially some compliance issues. She does have a follow-up with endocrinology here soon so hopefully they can make adjustments as necessary. - Physical Exam Vitals/I&O's: Vital Signs Temp Pulse Resp BP Pulse Ox 98.1 F 75 16 131/58 H 98 12/21/19 13:46 12/21/19 13:46 12/21/19 13:46 12/21/19 13:46 12/21/19 13:46 Oxygen Delivery Method Room Air Weight: 182 lb 15.739 oz Body Mass Index (BMI) 29.5 Finger Stick Blood Glucose 226 Intake and Output for Last 24 Hours 12/19/19 12/20/19 12/21/19 23:59 23:59 23:59 Intake Total 620 / 620 Output Total 250 / 250 Balance 370 / 370 General: Alert, Oriented x3, Cooperative, No apparent distress HEENT: Atraumatic, PERRLA, EOMI, Normocephalic Oral: Moist Mucosa Neck: Supple, No JVD Lungs: Clear to auscultation, Normal air movement, No rhonchi, No wheeze, No rales, Diminished Cardiovascular: Regular rate, Regular Rhythm, Normal S1, Normal S2, No murmurs Abdomen: Soft, Non Tender, Non-Distended, No Hepato-splenomegaly Extremities: No edema, Capillary Refill Less than 3 Seconds Skin: No rashes, No breakdown Neurological: Cranial nerves II-XII grossly intact, Neuro grossly intact, Motor Exam 5/5 strength throughout, Sensory exam intact to light touch and pain Psych/Mental Status: Normal Affect, Appropriate Laboratory Results 12/20/19 16:26: WBC 9.8, RBC 4.00 L, Hgb 11.0 L, Hct 33.6 L, MCV 84.0, MCH 27.5, MCHC 32.7, RDW Std Deviation 39.5, RDW Coeff of Nevin 12.9, Plt Count 254, MPV 9.7, Immature Gran % (Auto) 0.100, Neut % (Auto) 49.1, Lymph % (Auto) 36.2, [place] % (Auto) 7.1, Eos % (Auto) 6.9 H, Baso % (Auto) 0.6, Absolute Neuts (auto) 4.8, Absolute Lymphs (auto) 3.53, Nucleated RBC % 0 12/20/19 16:26: PT 13.0, INR 1.0, APTT 28.2 12/20/19 16:26: Sodium 138, Potassium 4.4, Chloride 105, Carbon Dioxide 28.0, Anion Gap 5, BUN 36 H, Creatinine 1.39 H, Estim Creat Clear Calc 39.28, Est GFR (MDRD) Af Amer 49 L, Est GFR (MDRD) Non-Af 41 L, BUN/Creatinine Ratio 25.9 H, Glucose 164 H, Calcium 9.2, Troponin I < 0.015 12/20/19 16:26: Hemoglobin A1c 10.3 H 12/20/19 20:40: POC Glucose 156 H 12/21/19 04:05: Urine Color Yellow, Urine Clarity Cloudy, Urine pH 6.0, Ur Specific Lipan 1.015, Urine Protein 100 H, Urine Glucose (UA) 50 H, Urine Ketones Negative, Urine Occult Blood 50 H, Urine Nitrite Negative, Urine Bilirubin Negative, Urine Urobilinogen Normal, Ur Leukocyte Esterase 500 H, Urine RBC 5-10 SEEN, Urine WBC 10-25 SEEN, Ur Squamous Epith Cells 5-10 SEEN, Urine Bacteria 3+, Urine Mucus 0 SEEN 12/21/19 04:05: U Random Total Protein 72.0 H, Urine Creatinine 71.20, Protein/Creatinin Ratio 1011 H 12/21/19 06:55: WBC 7.4, RBC 3.64 L, Hgb 10.0 L, Hct 30.3 L, MCV 83.2, MCH 27.5, MCHC 33.0, RDW Std Deviation 39.4, RDW Coeff of Nevin 13.0, Plt Count 224, MPV 10.1, Immature Gran % (Auto) 0.100, Neut % (Auto) 44.7 L, Lymph % (Auto) 38.9, [place] % (Auto) 7.9, Eos % (Auto) 7.6 H, Baso % (Auto) 0.8, Absolute Neuts (auto) 3.3, Absolute Lymphs (auto) 2.86, Nucleated RBC % 0 12/21/19 06:55: Sodium 138, Potassium 4.0, Chloride 105, Carbon Dioxide 26.0, Anion Gap 7, BUN 34 H, Creatinine 1.31 H, Estim Creat Clear Calc 41.68, Est GFR (MDRD) Af Amer 53 L, Est GFR (MDRD) Non-Af 44 L, BUN/Creatinine Ratio 26.0 H, Glucose 200 H, Calcium 8.7, Triglycerides 106, Cholesterol 97, LDL Cholesterol 40, VLDL Cholesterol 21, HDL Cholesterol 36 L 12/21/19 07:51: POC Glucose 196 H 12/21/19 11:24: POC Glucose 373 H Current Medications Acetaminophen (Tylenol) 650 mg PO Q6H PRN PRN PRN Reason: Pain Score 1-10/10 Last Admin: 12/21/19 09:02 Dose: 650 mg Documented by: Amlodipine Besylate (Norvasc) 10 mg PO DAILY [facility] Last Admin: 12/21/19 09:04 Dose: 10 mg Documented by: Aspirin (Aspirin, Baby) 81 mg PO DAILY@0800 [facility] Last Admin: 12/21/19 07:56 Dose: 81 mg Documented by: Atorvastatin Calcium (Lipitor) 20 mg PO QHS [facility] Chlorthalidone (Hygroton) 25 mg PO DAILY [facility] Last Admin: 12/21/19 09:10 Dose: 25 mg Documented by: Ciprofloxacin HCl (Cipro) 500 mg PO BID [facility] Last Admin: 12/21/19 10:32 Dose: 500 mg Documented by: Dextrose (D50w Syringe) 0 gm IV X1 PRN; Protocol PRN Reason: Hypoglycemia Glucagon () 1 mg IM .X1 PRN PRN Reason: Hypoglycemia Heparin Sodium (Porcine) (Heparin Na) 5,000 unit SC Q8 [facility] Last Admin: 12/21/19 13:42 Dose: 5,000 unit Documented by: Hydralazine HCl (Apresoline Iv) 5 mg IV Q30M PRN PRN Reason: to maintain BP goals Sodium Chloride () 250 mls @ 15 mls/hr IV .[id number] PRN PRN Reason: Saline Flush Sodium Chloride () 250 mls @ 15 mls/hr IV .[id number] PRN PRN Reason: Additional IVPB Infusion Insulin Glargine (Lantus (Bkc)) 20 units SC QHS [facility] Last Admin: 12/20/19 21:54 Dose: 20 u Documented by: Insulin Human Lispro (Humalog Kwikpen (Bkc)) 0 unit SC 0800,1200,1700 [facility]; Protocol Last Admin: 12/21/19 11:26 Dose: 12 units Documented by: Insulin Human Lispro (Humalog Kwikpen (Bkc)) 10 unit SC 0800,1200,1700 [facility] Last Admin: 12/21/19 11:26 Dose: 10 unit Documented by: Labetalol HCl (Trandate) 10 - 20 mg IV Q10M PRN PRN PRN Reason: to maintain BP goals Lisinopril (Zestril) 40 mg PO DAILY [facility] Last Admin: 04/28/20 09:04 Dose: 40 mg Documented by: Loratadine (Claritin) 10 mg PO DAILY [facility] Last Admin: 12/21/19 09:04 Dose: 10 mg Documented by: Melatonin (Melatonin) 3 mg PO QHS PRN PRN PRN Reason: INSOMNIA Ondansetron HCl (Zofran) 4 mg IV Q8H PRN PRN PRN Reason: NAUSEA/VOMITING Sodium Chloride () 10 - 40 ml IV UD PRN PRN Reason: SALINE FLUSH Discharge Activity: Return to Normal Activity Call your doctor if you observe: Fever of 101 or Higher, Shortness of breath, Dizziness, Fainting spells, Swelling in the ankles, Chest pain, Increased palpitations (irregular heartbeat) Home Medications: Medications to take at Discharge insulin aspart U-100 100 unit/mL (3 mL) subcutaneous pen See Rx Instructions SC TID ml 05/13/18 Insulin Glargine,Hum.rec.anlog [Basaglar Kwikpen U-100] 20 unit SUBCUT QHS 08/11/19 Atorvastatin Calcium 20 mg PO DAILY 12/20/19 Chlorthalidone 25 mg PO DAILY 12/20/19 Lisinopril 40 mg PO DAILY 12/20/19 Loratadine 10 mg PO DAILY 12/20/19 Amlodipine [Norvasc] 10 mg PO DAILY #30 tab 12/21/19 Aspirin [Aspirin, Baby] 81 mg PO DAILY@0800 #30 tab.chew 12/21/19 Ciprofloxacin [Cipro] 500 mg PO BID #10 tab 12/21/19 Following Prescrptions Were Given to Patient: Aspirin [Aspirin, Baby] 81 mg PO DAILY@0800 #30 tab.chew Transmission Status: Pending to [facility] Ciprofloxacin [Cipro] 500 mg PO BID #10 tab Transmission Status: Pending to [facility] Amlodipine [Norvasc] 10 mg PO DAILY #30 tab Transmission Status: Pending to [facility] Primary Care Physician: Melida Shaw MD [Primary Care Provider] - Please follow up with your Primary Care Physician in: 1-2 weeks Please Follow Up With: Susie Waddell DO When: 2-4 weeks Medical Necessity - Tobacco Use Smoking Status: Former smoker Tobacco Use: Cigarettes Meaningful Use Info Meaningful Use Diagnoses (Choose all that apply): None applicable OBSV E&M: 89541 Observation care discharge
== END 2019-12-21 14:46 | disposition home or self-care (01) ==
LOC: ED 17:26 → PCU 17:37
PROVIDERS: Admitting Provider Family Medicine; Emergency Provider Emergency Medicine; PCP Family Medicine; Visit Provider Family Medicine
DX: G45.9 Transient cerebral ischemic attack, unspecified (principal); I16.0 Hypertensive urgency; E78.5 Hyperlipidemia, unspecified; N39.0 Urinary tract infection, site not specified; I10 Essential (primary) hypertension; E13.319 Other specified diabetes mellitus with unspecified diabetic retinopathy without macular edema; R47.81 Slurred speech; E13.42 Other specified diabetes mellitus with diabetic polyneuropathy; E13.65 Other specified diabetes mellitus with hyperglycemia; Z91.19 Patient's noncompliance with other medical treatment and regimen; Z79.899 Other long term (current) drug therapy; Z79.4 Long term (current) use of insulin; Z87.891 Personal history of nicotine dependence
CPT/HCPCS: 36415; 70450; 70551; 71045; 76770; 80048; 80061; 81001; 82570; 82962; 83036; 84156; 84484; 85025; 85610; 85730; 87077; 87086; 87088; 87186; 92523; 93005; 93306; 94762; 96372; 96374; 97802; 99218; 99285; A4216; G0378

== ENCOUNTER → 2019-12-30 13:59 | Outpatient (CLI) | payer MEDICAID, SELFPAY ==
[2019-12-21 07:35] VITALS: BMI 29.5
[2019-12-30 16:17] LABS: Vitamin D,25 Hydroxy 22.4 ng/mL
[2019-12-30 18:36] LABS: Albumin, Serum 3.3 g/dL (3.2-5.0); BUN 51 mg/dL (7-18); BUN/Creat Ratio 30.7 RATIO (10-20); Calcium,Total 9.3 mg/dL (8.5-10.1); Chloride 99 mmol/L (98-107); Creatinine, Serum 1.66 mg/dL (0.55-1.02); EST Glomerular Filtration Rate 33 mL/min (>60); Est Glom Filt Rate - Afr Amer 40 mL/min (>60); Glucose 619 mg/dL (74-106); Phosphorus 4.7 mg/dL (2.5-4.9); Potassium 4.7 mmol/L (3.5-5.1); Sodium Level 133 mmol/L (136-145)
[2019-12-31 06:48] LABS: PTHIN 89.1 pg/mL (18.4-80.1)
== END ==
PROVIDERS: PCP Family Medicine; Referring Provider Internal Medicine Nephrology; Visit Provider Internal Medicine Nephrology
DX: N18.3 Chronic kidney disease, stage 3 (moderate) (principal); N39.0 Urinary tract infection, site not specified
CPT/HCPCS: 36415; 80069; 82306; 83970; 87086; 87088